=== PATIENT | female | born 1955 | race Two or more races ===

== ENCOUNTER 2018-04-26 20:11 | Observation (INO) | payer SELFPAY ==
[~2018-04-26] VITALS: Ht 167.6 cm; Wt 66.3 kg
--- NOTE | 2018-04-26 20:38 | NUR ---
AT BEDSIDE. NEON TUBE BENDER ON PHONE.
[2018-04-26 21:03] LABS: HEMATOCRIT 39.7 % (37.0-47.0); HEMOGLOBIN 12.6 g/dl (12.0-16.0); IMMATURE GRANULOCYTES 0.4 % (0.0-5.0); MEAN CELL VOLUME 86.3 fL CALC (80.0-100.0); MEAN CORPUSCULAR HGB 27.4 pG CALC (26.0-32.0); MEAN CORPUSCULAR HGB CONC 31.7 g/L CALC (32.0-36.0); NEUT# 7.71 thou/uL (2.00-7.15); RED BLOOD COUNT 4.6 mill/uL (4.20-5.60); RED CELL DISTRI WIDTH 13.6 % (11.5-15.5)
--- NOTE | 2018-04-26 21:10 | NUR ---
WARM BLANKETS GIVEN TO PT AND SPOUSE
[2018-04-26 21:12] LABS: ALBUMIN 4.4 g/dL (3.2-5.0); ALKALINE PHOSPHATASE 97 u/l (38-126); ANION GAP 17 (6-22 (CALC)); BILIRUBIN, TOTAL 0.3 mg/dL (0.0-1.4); BUN 23 mg/dL (8-23); BUN/CREATININE RATIO 18 (12-20 (CALC)); CARBON DIOXIDE 29 mmol/l (22-30); CHLORIDE 99 mmol/l (95-108); CREATININE 1.3 mg/dL (0.5-1.0); GFR 41 ML/MIN (>=60 (CALC)); GFR FOR AFR.AMER. 50 ML/MIN (>=60 (CALC)); POTASSIUM 3.5 mmol/l (3.5-5.1); SGOT/AST 32 u/l (9-36); SGPT/ALT 35 u/l (11-66); SODIUM 141 mmol/l (137-146); TOTAL PROTEIN 8.7 g/dL (6.3-8.2)
--- NOTE | 2018-04-26 21:24 | NUR ---
XRAY AT BEDSIDE
--- NOTE | 2018-04-26 21:25 | NUR ---
ORTHOSTATIC VS OBTAINED AT THIS TIME. PT REPORTS DIZZINESS WHEN GOING FROM SITTING TO STANDING POSITION. AWARE.
[2018-04-26 21:45] LABS: MYOGLOBIN 932 ng/mL (0 - 62)
--- NOTE | 2018-04-26 21:59 | NUR ---
RETURNED FROM XRAY
--- NOTE | 2018-04-26 22:50 | NUR ---
PT VOIDED ON BEDPAN. URINE SAMPLE TO LAB
[2018-04-26 22:58] LABS: URINE BILIRUBIN - DIPSTICK NEGATIVE (NEGATIVE); URINE BLOOD DIPSTICK TRACE-LYSED (NEGATIVE); URINE CLARITY TURBID; URINE COLOR YELLOW; URINE GLUCOSE - DIPSTICK NEGATIVE (NEGATIVE); URINE KETONE NEGATIVE (NEGATIVE); URINE LEUK ESTERASE SMALL (NEGATIVE); URINE NITRITE - DIPSTICK NEGATIVE (Negative); URINE PH 5.5 (4.5-8.0); URINE PROTEIN - DIPSTICK NEGATIVE (NEG-TRACE); URINE SPECIFIC GRAVITY 1.015; URINE UROBILINOGEN - DIPSTICK 0.2 E.U./dL (0.2)
[2018-04-26 23:01] LABS: BARBITURATES NEGATIVE (NEGATIVE); COCAINE NEGATIVE (NEGATIVE); METHADONE NEGATIVE (NEGATIVE); OXCYCODONE NEGATIVE (NEGATIVE); TETRAHYDROCANNABIONOL NEGATIVE (NEGATIVE); TRICYLIC ANTIDEPRESSANTS NEGATIVE (NEGATIVE)
[2018-04-26 23:03] LABS: URINE WBC 20-50 WBC/hpf (0-5)
[2018-04-26 23:04] LABS: URINE BACTERIA FEW hpf; URINE MUCUS FEW hpf (NONE-FEW); URINE SQUAMOUS EPITHELIAL CELL MANY EPI/hpf (0-FEW)
--- NOTE | 2018-04-26 23:43 | NUR ---
REPORT TO YUDELKA LANDRY. PT REMAINS A/O/MARY/GRASP EQUAL STRONG/ALFARO. NGUYỄN JAVIER. VSS.
--- NOTE | 2018-04-26 23:55 | NUR ---
TO ICU OVERFLOW FOR MED/SURG. AT SIDE. PT AMBULATORY TO BED. NAD. PWD. RESP EASY REG.
--- NOTE | 2018-04-26 23:55 | NUR ---
RECEIVED FROM ER VIA STRETCHER ACCOMPANIED BY MAC ROMERO, PT AMBULATING TO BED WITH STEADY GAIT. CREOLE SPEAKING ONLY, FAMILY MEMBER AT HER BED SIDE INTERPRETING. A/O X3, RESPIRATIONS EVEN AND UNLABORED, DENIES PAIN OR DIZZINESS AT THIS TIME. ADMITS TO COMING TO ER DUE TO PAIN TO RIGHT ARM AND LEGS FOR THE PAST 3DAYS THAT BECAME WORSE TODAY. ORIENTED TO USE CALL LIGHT FOR ASSISTANCE, PO FLUIDS IN REACH. OOB TO BSC, VOIDING 100ML OF CLEAR YELLOW URINE, STEADY GAIT, CLEAR YELLOW URINE, BACK TO BED. CALL LIGHT IN REACH.
[2018-04-27] VITALS (9 sets, daily range): BP systolic 115–166; BP diastolic 60–85
--- NOTE | 2018-04-27 02:30 | NUR ---
RESTING ON LEFT SIDE WITH EYES CLOSED, RESPIRATIONS EVEN AND UNLABORED, IV FLUIDS INFUSING TO RAC WITH NO COMPLICATIONS, CALL LIGHT IN REACH.
--- NOTE | 2018-04-27 05:05 | NUR ---
MORNING LABS DRAWN BY AIR POLLUTION AUDITOR, TOLERATED WELL.
--- NOTE | 2018-04-27 07:15 | NUR ---
RECIEVED REPORT FROM GRIS BENTLEY. PT ASLEEP AT THIS TIME. FLUIDS INFUSING WELL.PT CALL PINEDO IN REACH.
--- NOTE | 2018-04-27 07:30 | NUR ---
PT AWAKE AT THIS TIME. PT SPEAKS TURKMEN CREOLE WITH LIMITED SERBIAN. PT ASSISTED TO THE BSC. VOIDED CLEAR YELLOW URINE. VS STABLE AT THIS TIME. ASSESMENT COMPLETED (SEE INTERVENTION). LUMGS SOUND CLEAR BILATERALLY. HEART SOUNDS NORMAL S1 S2. TELEMETRY READING AT 69. SCANT EDEMA NOTED TO BILATERAL EXREMITIES. PT ASSISTED BACK TO BED. IV INFUSING WELL AT 125 ML/HR. IV SITE APPEARS HEALTHY AND FREE FROM REDNESS. INSTRUCTED TO CALL IF SHE NEEDED HOME AGENT. PTS STATES " WE WE" AND SHOOK HEAD YES. CALL PINEDO IN REACH. WILL CONTINUE TO MONITOR.
--- NOTE | 2018-04-27 08:15 | NUR ---
WATER INSPECTOR WENT IN TO SEE IF PT WAS THROUGH EATING. DUE TO PAIN ON RIGHT ARM PT COULD NOT OPEN CONDIMENTS FOR HER MEAL. WATER INSPECTOR ASSISTED PT. SCRUFF WORKER MODERATE AND EQUAL AND BOTH SIDES. PT DESCIBES PAIN THROBBING FROM SHOULDER DOWN.
--- NOTE | 2018-04-27 09:51 | NUR ---
PT VISTORS AT BEDSIDE. ABLE TO TRANSLATE. PT TAKES NO HOME MEDS JUST OTC MEDS. PT HAVING SOME PAIN IN HER ARM BUT NOT BAD ASA YESTERDAY AND LEGS FEEL MUCH BETTER. PTS STATES "SHE HAS NOT HAD AN APPETITE IN A FEW MONTHS, SHE TASTE IT AND THATS IT. SHE DON'T WANT IT.". PT HAS NO ABD PAIN. VOICING NO COMPLAINTS AT THIS TIME. APPRECIATIVE OF CARE PROVIDED. IV STILL INFUSING WELL. WILL CONTINUE TO MONITOR. CALL PINEDO IN PLACE.
--- NOTE | 2018-04-27 11:20 | NUR ---
DR VENTURA TO EXAMINE PT. CT SCAN FOR PLAN OF CARE.NO COMPLAINTS.WILL CONTINUE MONITOR.
--- NOTE | 2018-04-27 11:56 | NUR ---
SET UP ASSIST PROVIDE FOR LUNCH. PT NEEDED ASSISTANCE TO OPEN CONDIMENTS AND APPLY DUE TO HAND FUCTION.
--- NOTE | 2018-04-27 13:12 | NUR ---
RADIOLOGY CALLED TO HAVE PT COME DOWN FOR CT SCAN. KIARA MCKAY CALLED TO TRANSLATE PLAN OF CARE AND TO SEE IF PT HAS ANY QUESTIONS OR CONCERNS. PT VOICES UNDERSTANDING FOR PLAN OF CARE. PT JUST WANTS US TO HELP HER HAVE AN APPETITE AGAIN AND IF WE HAVE ANY QUESTIONS TO CALL HER FAMILY AND WE HAVE THE NUMBER. PT THEN TRANSFERED VIA WHEELCHAIR TO CT TOLERATED WELL. PT RETURNED FROM CT. ASSISTED TO BSC WITH STAND BY ASSIST. PT WASHED HERSELF WITH SET UP ONLY. PT ASSISTED BACK TO BED AND VOICING NO COMPLAINTS. CALL PINEDO IN REACH WILL CONTINUE TO MONITOR.
--- NOTE | 2018-04-27 16:00 | NUR ---
PT RESTING QUIETLY IN BED. IV INFUSING WELL. NO REDNESS OR EDEMA.
--- NOTE | 2018-04-27 18:21 | NUR ---
PT ASSISTED TO BSC. NEW FLUIDS HUNG. INFUSING WELL. NO REDNESS OR EDEMA.
--- NOTE | 2018-04-27 19:40 | NUR ---
PT IN BED SMILING AND PLEASANT, FOLLOWS DIRECTIONS. ABLE TO STATE HER NAME. CREOLE SPEAKING ONLY, IN NO APPARENT DISTRESS. NS INFUSING TO RAC AT 125CC/HR. STRONG HAND PRODUCTION ASSOCIATE BILAT, STRONG LEGS BILAT. BSC AT BED SIDE. PO FLUIDS IN REACH. TEMP 98.8, HR 73, B/P 151/68, O2 SAT 100%. ORIENTED TO CALL LIGHT FOR ASSISTANCE, PT NODDING HER HEAD AND IS VERY APPRECIATIVE.
--- NOTE | 2018-04-27 20:40 | NUR ---
OOB TO BSC WITH STEADY GAIT, VOIDING 300ML OF CLEAR YELLOW URINE. BACK TO BED, CALL LIGHT IN REACH.
--- NOTE | 2018-04-28 | NUR ---
RESTING WITH EYES CLOSED, RESPIRATIONS EVEN AND UNALBORED. IV FLUIDS INFUSING TO RAC WITH NO COMPLICATIONS. CALL LIGHT IN REACH.
--- NOTE | 2018-04-28 01:30 | NUR ---
OOB TO BSC, VOIDING 300ML OF CLOUDY YELLOW URINE, BACK TO BED. CALL LIGHT IN REACH, IV FLUIDS INFUSING TO RAC WITH NO COMPLICATIONS. CALL LIGHT IN REACH.
[2018-04-28 03:40] VITALS: BP 133/73
--- NOTE | 2018-04-28 05:20 | NUR ---
OOB TO BSC VOIDING 250ML OF CLOUDY YELLOW URINE, THEN BACK TO BED. IN NO APPARENT DISTRESS, VERY POLITE AND THANKING STAFF. NS INFUSING TO LAC WITH NO COMPLICATIONS, CALL LIGHT IN REACH.
--- NOTE | 2018-04-28 05:40 | NUR ---
VERSE WRITER AT BED SIDE DRAWING BLOOD, TOLERATED WELL.
[2018-04-28 05:49] LABS: HEMATOCRIT 33.8 % (37.0-47.0); IMMATURE GRANULOCYTES 0.2 % (0.0-5.0); MEAN CORPUSCULAR HGB 27.6 pG CALC (26.0-32.0); MEAN CORPUSCULAR HGB CONC 31.4 g/L CALC (32.0-36.0); NEUT# 1.96 thou/uL (2.00-7.15); RED BLOOD COUNT 3.84 mill/uL (4.20-5.60); RED CELL DISTRI WIDTH 13.7 % (11.5-15.5)
[2018-04-28 05:50] LABS: HEMOGLOBIN 10.6 g/dl (12.0-16.0)
[2018-04-28 06:08] LABS: ALKALINE PHOSPHATASE 69 u/l (38-126); ANION GAP 11 (6-22 (CALC)); BILIRUBIN, TOTAL 0.3 mg/dL (0.0-1.4); BUN 13 mg/dL (8-23); BUN/CREATININE RATIO 21 (12-20 (CALC)); CARBON DIOXIDE 26 mmol/l (22-30); CHLORIDE 110 mmol/l (95-108); CREATININE 0.6 mg/dL (0.5-1.0); GFR > 60 ML/MIN (>=60 (CALC)); GFR FOR AFR.AMER. > 60 ML/MIN (>=60 (CALC)); MAGNESIUM 1.7 mg/dL (1.6-2.3); POTASSIUM 3.7 mmol/l (3.5-5.1); SGOT/AST 33 u/l (9-36); SGPT/ALT 34 u/l (11-66); SODIUM 144 mmol/l (137-146)
[2018-04-28 06:09] LABS: ALBUMIN 2.9 g/dL (3.2-5.0); TOTAL PROTEIN 5.8 g/dL (6.3-8.2)
[2018-04-28 07:30] VITALS: BP 128/66
--- NOTE | 2018-04-28 07:30 | NUR ---
PT ALERT AND ORIENTED X3. OBEYS COMMANDS. CREOLE SPEAKING ONLY. UP TO BSC VOIDED CLEAR YELLOW URINE. ASSESMENT COMPLETED AT THIS TIME (SEE INTERVENTIONS), PERRLA, FACIAL SYMMETRY, LUNGS CLEAR BILATERALLY. NORMAL IN S1 S2. TELEMETRY READING HR 66. BOWEL SOUNDS ACTIVE. TRACE EDEMA NOTED TO BILATERAL LOWER EXTREMITIES. PEDAL AND RADIAL PULSES STRONG. #18 IN THE RAC INFUSING WELL, NO REDNESS OR EDEMA. PT VOICING NO COMPLAINTS. SET UP FOR BREAKFAST WITH ASSIST WITH CONDIMENTS AND OPENING JUICE. CALL PINEDO IN REACH. WILL CONTINUE TO MONITOR.
--- NOTE | 2018-04-28 08:45 | NUR ---
DR MATSON IN TO DISCUSS PLAN OF CARE AND ASSESS PT TO PT USING [place] LINE. CURTAIN MENDER #[id number] MATSON IN TO DISCUSS MASS FOUND ON CT SCAN, WOULD LIKE A REPEAT CT SCAN. DISCUSS POSSIBLE TRANSFER TO [facility] VIA CURTAIN MENDER. MEDS GIVEN PER ORDER. IV INFUSING WEL. PT NOW RESTING IN BED. WILL CONTINUE TO MONITOR. CALL PINEDO IN REACH.
--- NOTE | 2018-04-28 10:01 | NUR ---
PT RESTING IN BED. ON THE PHONE AT THIS TIME. IV INFUSING WELL NO REDNESS OR EDEMA. WILL CONTINUE TO MONITOR.
--- NOTE | 2018-04-28 12:00 | NUR ---
PT AWAKE AND RESTING QUIETLY IN BED. PT REMAINS NPO AT THIS TIME. AWAITING TESTS. IV INFUSING WELL AT 20 MLS/HR. WILL CONTINUE TO MONITOR,
[2018-04-28 12:05] VITALS: BP 142/72
--- NOTE | 2018-04-28 12:50 | NUR ---
PT TO CT SCAN VIA WHEELCHAIR WITH JOURNEYMAN SHEET METAL WORKER,
--- NOTE | 2018-04-28 13:20 | NUR ---
PT BROUGHT BACK FOR CT BY HANDYMAN VIA WHEELCHAIR. SET UP TO EAT LUNCH. WILL BATHE AFTER EATING.
--- NOTE | 2018-04-28 13:40 | NUR ---
PT ASSISTED TO BSC. PT BATHED SELF, LINENS CHANGED, ORAL CARE. PT BACK TO BED. IV INFUSING. NO REDNESS OR EDEMA NOTED. CALL PINEDO IN REACH . WILL CONTINUE TO MONITOR.
--- NOTE | 2018-04-28 14:45 | NUR ---
RECIEVED PHONE CALL FROM DR. MATSON. PT TO BE TRANSFERED TO [facility] FOR HIGHER LEVEL OF CARE.
--- NOTE | 2018-04-28 14:50 | NUR ---
SPOKE TO CHENG AT [facility]. INFO GIVEN ON PT. WOULD LIKE FACESHEET FAXED AND WILL GET THINGS GOING. FAX NUMBER [phone]. CHENG WILL BE IN TOUCH.
--- NOTE | 2018-04-28 16:24 | NUR ---
LEIF TO CHENG AT [facility]. ROOM [id number] ASSIGNED TO PT. NURSE TO NURSE [phone]. THE TRANSFERED TO [place] TO GIVE REPORT.
--- NOTE | 2018-04-28 16:42 | NUR ---
[facility] LINE CALLED TO GET CONSENT TO TRANSFER FROM PT. MONTEZ #[id number] INTERPRETS. PT UNDERSTANDS SHE NEEDS TO GO BUT WILL NOT GO UNTILL HER FAMILY GETS OF WORK AND COMES HERE AT 1900 THEN SHE WILL GO BUT UNTIL THEN SHE WILL NOT.LEGAL WRITING PROFESSOR AGREES TO TERMS AND PT ATTEMPTED TO SIGN HER NAME, PT PUTS A X. SHE INFORMS LEGAL WRITING PROFESSOR THAT SHE DOES NOT KNOW HOW TO WRITE ANYTHING ELSE. JOSEPHINE ROMERO AND LEGAL WRITING PROFESSOR SIGN WITNESS TO HER VERBAL CONSENT TO TRANSFER.
--- NOTE | 2018-04-28 16:48 | NUR ---
CALLED BAR IN [place] TO LET HER KNOW THE PT WOULD NOT BE ARRIVING TILL SOMETIME AFTER 7.
[2018-04-28 17:10] VITALS: BP 130/72
--- NOTE | 2018-04-28 17:50 | NUR ---
PT CALLS TOOL CRIB LEAD IN ROOM TO SPEAK TO SAM. SAM SAYS HE CAN NOT MAKE IT THERE TILL 9 SO SHE BISI JUST GO TO [place] AND I WILL MEET HER THERE.TOOL CRIB LEAD ASK SHARAD TO LET HER KNOW AND OPT AGREES TO GO TO [place]. PTS STATES "WE [place]"
--- NOTE | 2018-04-28 18:15 | NUR ---
SPOKE TO NURSE FAY WHO WILL BE TAKING PT IN [place] UPDATING HER ON PTS CHANGE OF MIND AND SHE WILL GO NOW.
--- NOTE | 2018-04-28 18:18 | NUR ---
CALLED [facility] SPOKE TO ROSALIO INFO GIVEN ETA 20-30 MINS
--- NOTE | 2018-04-28 18:40 | NUR ---
[facility] CALLED #[id number]. PT UNDERSTANDS AND AGREES TO [facility] TERMS. PT LOADED UP AND TRANFERED TO [place] [facility]IA [facility]. PT BELONGINGS SENT WITH PT.
== END 2018-04-28 18:52 | disposition short-term general hospital (02) | DRG 204 ==
LOC: ED 20:11 → ED-I 21:57 → ED 23:04 → ICU 23:05
PROVIDERS: Emergency Medicine; Internal Medicine Nephrology; ADMIT Internal Medicine; ATTEND Internal Medicine
DX: R91.8 Other nonspecific abnormal finding of lung field (principal); M62.82 Rhabdomyolysis; N17.9 Acute kidney failure, unspecified; E86.0 Dehydration; K21.9 Gastro-esophageal reflux disease without esophagitis; I10 Essential (primary) hypertension; R63.4 Abnormal weight loss; R53.1 Weakness; Z68.23 Body mass index [BMI] 23.0-23.9, adult
CPT/HCPCS: Q9967

== ENCOUNTER 2019-05-11 15:54 | Emergency (ER) | payer SELFPAY ==
[~2019-05-11] VITALS: Ht 167.6 cm; Wt 72.1 kg
[2019-05-11] MEDS ORDERED: HYDROCHLOROT12.5 MG PO (16:23)
[2019-05-11 16:59] LABS: HEMOGLOBIN 12.2 g/dl (12.0-16.0); IMMATURE GRANULOCYTES 0.2 % (0.0-5.0); MEAN CELL VOLUME 87.7 fL CALC (80.0-100.0); MEAN CORPUSCULAR HGB 26.8 pG CALC (26.0-32.0); MEAN CORPUSCULAR HGB CONC 30.5 g/L CALC (32.0-36.0); NEUT# 2.44 thou/uL (2.00-7.15); RED BLOOD COUNT 4.56 mill/uL (4.20-5.60); RED CELL DISTRI WIDTH 13.6 % (11.5-15.5)
[2019-05-11 17:14] LABS: ALKALINE PHOSPHATASE 68 u/l (38-126); ANION GAP 11 (6-22 (CALC)); BILIRUBIN, TOTAL 0.3 mg/dL (0.0-1.4); BUN 13 mg/dL (8-23); BUN/CREATININE RATIO 20 (12-20 (CALC)); CARBON DIOXIDE 30 mmol/l (22-30); CHLORIDE 104 mmol/l (95-108); CREATININE 0.7 mg/dL (0.5-1.0); GFR > 60 ML/MIN (>=60 (CALC)); GFR FOR AFR.AMER. > 60 ML/MIN (>=60 (CALC)); POTASSIUM 4.3 mmol/l (3.5-5.1); SGOT/AST 25 u/l (9-36); SODIUM 141 mmol/l (137-146)
[2019-05-11 17:15] LABS: TOTAL PROTEIN 7.5 g/dL (6.3-8.2)
[2019-05-11 17:56] VITALS: BP 155/64
== END 2019-05-11 18:05 | disposition home or self-care (01) | DRG 305 ==
LOC: ED 15:54
DX: I10 Essential (primary) hypertension (principal); M79.605 Pain in left leg; M79.601 Pain in right arm; T46.5X6A Underdosing of other antihypertensive drugs, initial encounter; Z91.128 Patient's intentional underdosing of medication regimen for other reason